=== PATIENT | female | born 1945 | race Caucasian/White ===

== ENCOUNTER → 2017-02-13 | Outpatient (CLI) | payer BC ==
[~2017-02-13] MED LIST: BIOTCAP2 PO; CALC-393 PO; CHOL100010 PO; DICL-201 PO; FLAX12003 PO; GLUC1CAP33 PO; IBUP-1050 PO; LEVO112T4 PO; LEVO125T72 PO; LISI10TA PO; MAGN400T6 PO; NAPR1TAB9 PO; POTASSIUM PO; SIMV20TA2 PO; VITAMIN D PO
--- NOTE | 2017-02-13 14:39 | DIAGNOSTIC IMAGING REPORT ---
RIGHT KNEE 3 VIEWS CLINICAL HISTORY: BILATERAL KNEE PAIN/ DJD Right COMPARISON: None. DISCUSSION: Considerable degenerative change of the medial and to lesser extent lateral joint compartments left knee. Moderate degenerative change all major joint compartments right knee. Considerable degenerative changes of patellofemoral joints bilaterally. Moderate osteophytic changes throughout. There is no evidence for soft tissue swelling. IMPRESSION: Considerable degenerative change left and to lesser extent right knee. Degenerative changes involve all major joint compartments. Electronically signed by: Mateo Madison M.D. 02/13/2017 2:36 PM Dictated Date/Time: 02/13/2017 2:36 PM
== END | disposition home or self-care (01) ==
LOC: C.RDSM 14:00
PROVIDERS: ATTEND Physician Assistant
DX: M17.0 Bilateral primary osteoarthritis of knee (principal)

== ENCOUNTER 2017-10-22 06:16 | Inpatient (IN) | payer BC, OTHER ==
[2017-09-29 11:13] VITALS: BMI 26.0
--- NOTE | 2017-09-29 11:46 | PAT Medication Instructions ---
Service Date Sep 29, 2017. Current Home Medication List Biotin (Biotin 5000), 5,000 MCG PO QAM Calcium Carbonate (Calcium), 1 TAB PO BID Flaxseed (Linseed) (Flaxseed Oil), 1 TAB PO QPM Glucosamine-Chondroitin (Glucosamine & Chondroitin 500-400 mg), 1 CAP PO QPM Ibuprofen (Advil), 400-600 MG PO Q6H Levothyroxine Sodium (Levothyroxine Sodium), 1 TAB PO QAM Lisinopril (Prinivil), 10 MG PO QAM Magnesium Oxide (Mag-Ox), 400 MG PO Q2D Naproxen (Aleve), 220 MG PO PRN [Potassium], 1 TAB PO QPM [Vitamin D], 1 TAB PO QPM Medication Instructions For Your Scheduled Surgery - Hold the following medications 2 weeks prior to surgery: Flaxseed (Linseed) (Flaxseed Oil), 1 TAB PO QPM Glucosamine-Chondroitin (Glucosamine & Chondroitin 500-400 mg), 1 CAP PO QPM - Contact your surgeon for instructions for: Naproxen (Aleve), 220 MG PO PRN Ibuprofen (Advil), 400-600 MG PO Q6H - Hold the following medications the morning of surgery: Biotin (Biotin 5000), 5,000 MCG PO QAM Calcium Carbonate (Calcium), 1 TAB PO BID Lisinopril (Prinivil), 10 MG PO QAM - Take the following medications the morning of surgery with a sip of water: Levothyroxine Sodium (Levothyroxine Sodium), 1 TAB PO QAM - Take the following medications as scheduled the night before surgery: [Potassium], 1 TAB PO QPM [Vitamin D], 1 TAB PO QPM Magnesium Oxide (Mag-Ox), 400 MG PO Q2D Calcium Carbonate (Calcium), 1 TAB PO BID If you have any questions please call us at [phone] or [phone] or [phone]
--- NOTE | 2017-09-29 12:24 | DIAGNOSTIC IMAGING REPORT ---
CHEST 2 VIEWS ROUTINE HISTORY: 72 years-old Female pat preoperative exam. No acute chest complaints. COMPARISON: None available TECHNIQUE: Frontal and lateral views of the chest FINDINGS: Cardiomediastinal and hilar silhouettes are within normal limits. There is no pneumothorax, pleural effusion, focal airspace consolidation or overt pulmonary edema. Degenerative changes are seen about the shoulders and spine. IMPRESSION: No acute cardiopulmonary process. The above report was generated using voice recognition software. It may contain grammatical, syntax or spelling errors. Electronically signed by: Ryley Hilton M.D. 09/29/2017 12:23 PM Dictated Date/Time: 09/29/2017 12:22 PM
[2017-09-29 12:38] LABS: BASO % 0.8 %; BASO ABS # 0.06 K/uL (0-0.2); COMPLETE YES; EOS % 3.8 %; HEMATOCRIT 39.7 % (37-47); IG% 0.3 %; LYMPH % 33.9 %; LYMPH ABS # 2.71 K/uL (1.2-3.4); MEAN CELL VOLUME 89.8 fL (80-100); MEAN CORPUSCULAR HEMOGLOBIN 29.4 pg (25-34); MEAN CORPUSCULAR HGB CONC 32.7 g/dl (32-36); MEAN PLATELET VOLUME 9.9 fL (7.4-10.4); MONO % 7.1 %; NEUT % 54.1 %; PLATELET COUNT 281 K/uL (130-400); RED BLOOD COUNT 4.42 M/uL (4.2-5.4)
[2017-09-29 12:42] LABS: URINE APPEARANCE CLEAR (CLEAR); URINE BILIRUBIN NEG (NEG); URINE COLOR YELLOW; URINE NITRITE NEG (NEG); URINE SPECIFIC GRAVITY 1.014 (1.000-1.030); UROBILINOGEN NEG (NEG); ZZUR CULT IF INDIC CLEAN CATCH NO
[2017-09-29 12:47] LABS: MANUAL MICROSCOPIC REQUIRED? NO; REVIEW REQ? NO
[2017-09-29 12:58] LABS: PROTHROMBIN TIME (PATIENT) 10.3 SECONDS (9.0-12.0)
[2017-09-29 14:05] LABS: CALCIUM 7.1 mg/dl (8.5-10.1); CREATININE 0.87 mg/dl (0.60-1.20); POTASSIUM 3.6 mmol/L (3.5-5.1)
--- NOTE | 2017-10-06 15:26 | HISTORY & PHYSICAL EXAMINATION ---
DATE OF ADMISSION: 10/22/2017 CHIEF COMPLAINT: Bilateral knee pain, left greater than right. HISTORY OF PRESENT ILLNESS: This 72-year-old white female presents to the office with complaints of bilateral knee pain, left greater than right, for the last several years. She previously was scheduled for a right knee TKA, but now desires to changes it to her left knee. She states that it is the most problematic. It is bothering her more with activity. She is having difficulty with activities of daily living. Pain is worse with weightbearing. She denies any current swelling. She has tried activity modification, oral anti-inflammatories, cortisone injections, and viscosupplementation injections without lasting relief. Preoperative imaging has been obtained. No numbness or tingling. She elects to proceed with total knee arthroplasty on 10/22/2017. PAST MEDICAL HISTORY: Significant for elevated cholesterol, hypothyroidism, osteoarthritis, history of thyroid cancer, GERD, and a history of cataracts. PREVIOUS SURGERIES: Thyroidectomy 1996, hysterectomy in 1987, foot surgery, hand surgery, and previous knee arthroscopy. ALLERGIES: KNOWN ALLERGY TO CIPRO. CURRENT MEDICATIONS: Biotin daily, calcium daily, flaxseed oil daily, levothyroxine 150 mcg p.o. daily, lisinopril 10 mg p.o. daily, and magnesium 200 mg p.o. daily. SOCIAL HISTORY: The patient is single. Lives by herself. No tobacco use and no ETOH use. FAMILY HISTORY: Significant for cancer, heart disease, and stroke. REVIEW OF SYSTEMS: Significant for above stated conditions. Otherwise, unremarkable. PHYSICAL EXAMINATION: GENERAL: Well-developed and well-nourished elderly white female, in no acute distress. Sitting on a bed. Alert and oriented. Looks younger than her stated age. SKIN: Warm and dry with good turgor. No rashes or lesions. No ecchymosis or erythema. HEENT: Normocephalic and atraumatic. Eyes PERRLA and EOMI. Nares patent bilaterally without turbinate enlargement. Oropharynx is without erythema or exudate. No lesions noted. Uvula midline. Oral mucosa moist. Fair dentition. Dental caps are noted. HEART: RRR. No MGR. LUNGS: Clear to auscultation bilaterally. No crackles, rhonchi or wheezing. Good air movement. ABDOMEN: Bowel sounds present x4, soft and nontender. No organomegaly. No masses. MUSCULOSKELETAL: Left knee has no intraarticular effusion. No redness or warmth. She has focal discomfort with palpation over the medial and lateral joint lines. She has peripatellar discomfort as well. Lacks just a few degrees of terminal extension. Flexion to greater than 100 degrees. Strength is 5/5 with good quad tone. No defect in the patellar tendon or quadriceps tendon. Stable collateral ligaments. Ambulatory with a slightly antalgic gait. Slight varus stance. She has crepitation palpable with range of motion. NEUROLOGIC: Cranial nerves II through XII are intact. Gross sensation is intact across both lower extremities by soft touch. DATA: Radiographic imaging previously obtained shows end-stage DJD of the left knee in all 3 compartments. Periarticular osteophytes, subchondral sclerosis, and joint space narrowing are present. IMPRESSION: Left knee end-stage degenerative joint disease. PLAN: Postoperative prescriptions for Percocet and Coumadin will be provided at discharge from the hospital. Anticipate discharge to a rehab facility or [facility] facility as she does not have anyone at home to help her. She already has access to a walker. Preoperative lab work, EKG, and chest x-ray have been ordered. Medical clearance has been requested from her PCP, Dr. Hurst.
[~2017-10-22] VITALS: Ht 170.2 cm; Wt 76.7 kg
[2017-10-22] VITALS (7 sets, daily range): BP systolic 126–164; BP diastolic 77–97; PULSE 71–88; TEMP 36.5–36.8; O2SAT 94–98; Ht 170.2 cm; Wt 76.7 kg
[~2017-10-22 06:16] MED LIST changes: +CEFAZOLIN 2000MG IV PUSH 10 ML IV SCH; -CHOL100010 PO; -DICL-201 PO; +LACTATED RINGER'S 1000ML 1,000 ML IV SCH; +LACTATED RINGER'S 1000ML 500 ML IV ONE; +LACTATED RINGER'S 1000ML IV SCH; -LEVO125T72 PO; +ROPIVACAINE 5MG/ML 30 ML 150 MG, BUPIVACAINE/EPINEPHR 0.5% MPF 30 ML, KETOROLAC TROMETH... INFIL SCH; -SIMV20TA2 PO; +TRANEXAMIC ACID INJ 1,000 MG in SYRINGE 0 ML IV SCH
--- NOTE | 2017-10-22 06:26 | History & Physical Bridge Note ---
H&P Re-Evaluation Bridge Note: I have examined the patient, reviewed the History & Physical and in the interval since the performance of the History & Physical I have noted the following changes of clinical significance: consent reviewed.No changes noted
[2017-10-22] MEDS ORDERED: BUPIVACAINE 0.5 % 5 MG/1 ML PF 10ML VIAL ONE (06:33)
[2017-10-22] MEDS ORDERED: BUPIVACAINE 0.25% 30 ML VIAL ONE (06:34)
[2017-10-22] MEDS ORDERED: FENTANYL CITRATE INJ 50 MCG/1 ML 2 ML VIAL ONE (07:37)
[2017-10-22] MEDS ORDERED: MIDAZOLAM HCL 1 MG/ML 2ML VIAL ONE (07:38)
[2017-10-22] MEDS ORDERED: ORTHO JOINT ANESTHETIC ONE (08:43)
[2017-10-22] MEDS ORDERED: POVIDONE-IODINE OP SOLN 30 ML BTL ONE (08:43)
[2017-10-22] MEDS ORDERED: PROPOFOL IV EMULSION 10 MG/ML 20 ML VIAL IV ONE (09:30)
[2017-10-22] MEDS ORDERED: DEXAMETHASONE SOD INJ 4 MG/ML VIAL ONE (09:30)
[2017-10-22] MEDS ORDERED: ONDANSETRON INJ 2 MG/ML 2 ML VIAL ONE (09:30)
--- NOTE | 2017-10-22 10:37 | [facility] Post Operative Brief Note ---
Immediate Operative Summary Operative Date Oct 22, 2017. Pre-Operative Diagnosis Left Knee Degenerative Joint Disease Post-Operative Diagnosis Same as preop Procedure(s) Performed Left Total Knee Arthroplasty Surgeon Dr. Magallon Sheet Pile Hammer Operator Surgeon(s) Garry Mast PA-C Estimated Blood Loss 100 ml Findings severe djd Fluids (cc crystalloids) 1700cc Specimens A. Left Knee Bone and Tissue Drains none Anesthesia spinal Complication(s) None Disposition Recovery Room / PACU
[2017-10-22] MEDS ORDERED: METOCLOPRAMIDE HCL INJ 5 MG/ML 2 ML VIAL IV PRN (11:00)
[2017-10-22] MEDS ORDERED: MoRPHine SULFATE 2 MG/ML CARP IV PRN (11:00)
[2017-10-22] MEDS ORDERED: DiphenhydrAMINE HCL 50 MG/ML VIAL IV PRN (11:00)
[2017-10-22] MEDS ORDERED: BISACODYL 10 MG SUPP PR PRN (11:00)
[2017-10-22] MEDS ORDERED: ONDANSETRON INJ 2 MG/ML 2 ML VIAL IV PRN ×2 (11:00→11:15)
[2017-10-22] MEDS ORDERED: CEFAZOLIN IV 2,000 MG in DEXTROSE 5% 50ML 50 ML IV SCH (11:00)
[2017-10-22] MEDS ORDERED: MAGNESIUM HYDROXIDE SUSP 30 ML UDC PO PRN (11:00)
[2017-10-22] MEDS ORDERED: ACETAMINOPHEN IV 100 ML IV PRN (11:00)
[2017-10-22] MEDS ORDERED: MAGNESIUM OXIDE 400 MG TAB PO SCH (11:00)
[2017-10-22] MEDS ORDERED: ALUMINUM/MAGNESIUM/SIMETH (MAALOX MAX) 30 ML UDC PO PRN (11:00)
[2017-10-22] MEDS ORDERED: ACETAMINOPHEN 325 MG TAB PO PRN (11:00)
[2017-10-22] MEDS ORDERED: EpHEDrine SULFATE INJ 50 MG/ML AMP IV PRN (11:15)
[2017-10-22] MEDS ORDERED: PHENYLEPHRINE 100MCG/ML 5ML SYR IV PRN (11:15)
[2017-10-22] MEDS ORDERED: ATROPINE SULFATE 0.1 MG/ML 5ML SYR IV PRN (11:15)
[2017-10-22] MEDS ORDERED: HYDROmorphone INJ 0.5 MG/0.5 ML SYR IV PRN (11:15)
[2017-10-22] MEDS ORDERED: KETOROLAC TROMETHAMINE 15 MG/ML VIAL IV. PRN (11:15)
--- NOTE | 2017-10-22 11:21 | OPERATIVE REPORT ---
DATE OF OPERATION: 10/22/2017 PREOPERATIVE DIAGNOSIS: Osteoarthritis left knee with flexion and varus deformity. POSTOPERATIVE DIAGNOSIS: Same. OPERATION PERFORMED: Cemented left total knee replacement. SURGEON: Dr. Magallon. TILE PRESSER: Garry Mast PA-C. No resident or fellow available. PERIOPERATIVE SITUATION: Medically cleared female with intractable knee pain has been followed for years. At this point in time has reached failure to respond to any nonsurgical management and is requesting total knee replacement. CONSENT: Obtained, risks and benefits of noted. OPERATION AND FINDINGS: OPERATION: The patient appropriately identified, site verified, consent verified, 2 grams of Ancef confirmed as being given. The left lower extremity was prepped and draped in usual routine fashion. Tourniquet inflated to 300 mmHg after exsanguination of limb with a rubber Esmarch bandage for a total of approximately 60 minutes. Midline exposure was utilized. Parapatellar arthrotomy performed. Synovectomy completed. Soft tissue release was performed. Distal femur resected 14 mm. Proximal tibia resected 4 mm. It was still tight in extension and flexion so an additional 2 mm was resected. This allowed an excellent extension gap. The femur was then sized between a 3 and a 2.5. It was measured 3 cut 2.5. There was no notching. The flexion gap was then checked. It was still tight little bit laterally, so appropriate releases performed and then it was excellent. The femur was then placed. The 2.5 cutting block and appropriate anterior, posterior condylar and chamfer cuts made. The box cut was then made and the size 2.5 fit well. The tibia was then broached and reamed for 2.5 and trial reduction with 10 revealed excellent stability in full extension, mid range flexion and full flexion. Range of motion from 0-125 degrees. The patella tracked well. The patella osteophytes were then resected. The patella was then resected leaving about 15 mm and required a revision cut due to some hard bone and once this was done, the button sat well. It was 38 button. All trial implants were then removed. The wound was irrigated with Betadine, Pulsavac and then injected with the Orthomix and the permanent cemented into position. After 12 minutes, the tourniquet deflated. After 14 minutes the knee flexed. Minor cement removal was not required. The wound was irrigated with Betadine Pulsavac. The trial liner removed, the permanent liner seated, knee reduced. No drain placed and then closed with #1 Ethibond, #1 Vicryl, 2-0 Vicryl and stainless steel clips. Appropriate dressing applied. ESTIMATED BLOOD LOSS: 100 mL. CRYSTALLOID: 1700 mL. SUMMARY OF IMPLANTS: Size 2.5 left posterior cruciate substituting femur, size 2.5 tibial rotating tray, oval domed 3 pegged patella size 28, tibial insert 2.5 x 10 mm posterior cruciate substituting and 2 bags of Palacos G cement. DVT prophylaxis will be with Coumadin. The bone pathology pending. I attest to the content of the Intraoperative Record and any orders documented therein. Any exception s are noted below.
--- NOTE | 2017-10-22 11:22 | DIAGNOSTIC IMAGING REPORT ---
LEFT KNEE 2 VIEWS History: Left total knee arthroplasty. Degenerative arthritis. Postop. FINDINGS: The patient is status post a left total knee arthroplasty. The hardware is intact. No fracture or dislocation. Skin gail are in place. IMPRESSION: Left total knee arthroplasty. No evidence for hardware complication. Electronically signed by: Bassam Mckeon M.D. 10/22/2017 11:20 AM Dictated Date/Time: 10/22/2017 11:20 AM
--- NOTE | 2017-10-22 12:25 | Anesthesiology Progress Note ---
Anesthesia Post Op Note Date & Time Oct 22, 2017 at 12:24 Vital Signs Pain Intensity: 0 Vital Signs Past 12 Hours Date Time Temp Pulse Resp B/P (MAP) Pulse Ox O2 Delivery O2 Flow Rate FiO2 10/22/17 11:55 70 15 120/74 95 Nasal Cannula 2 10/22/17 11:45 36.5 68 14 127/75 96 Nasal Cannula 2 10/22/17 11:35 67 18 126/79 97 Nasal Cannula 2 10/22/17 11:25 67 18 126/80 98 Nasal Cannula 2 10/22/17 11:15 70 16 128/81 96 Nasal Cannula 2 10/22/17 11:05 73 14 122/74 97 Nasal Cannula 2 10/22/17 10:55 71 13 125/77 97 Nasal Cannula 2 10/22/17 10:45 36.0 80 24 106/84 94 Nasal Cannula 2 10/22/17 06:58 36.5 74 20 151/97 97 Room Air Notes Mental Status: alert / awake / arousable, participated in evaluation Pt Amnestic to Procedure: Yes Nausea / Vomiting: adequately controlled Pain: adequately controlled Airway Patency, RR, SpO2: stable & adequate BP & HR: stable & adequate Hydration State: stable & adequate Anesthetic Complications: no major complications apparent
[2017-10-22] MEDS ORDERED: D5W AND 1/2NSS + 20MEQ KCL 1,000 ML IV SCH (13:00)
--- NOTE | 2017-10-22 13:00 | [facility] Operative Report ---
Operative Report Operative Date Oct 22, 2017. Pre-Operative Diagnosis Left Knee Degenerative Joint Disease Post-Operative Diagnosis Left knee same as preop Procedure(s) Performed Left Total Knee Arthroplasty Surgeon Dr. Magallon Transmission Engineer Surgeon(s) Garry Mast PA-C Estimated Blood Loss 100 ml Findings left knee DJD Fluids 1700cc Specimens A. Left Knee Bone and Tissue Drains none Anesthesia spinal Complication(s) None Disposition Recovery Room / PACU Indications This 72-year-old white female presented to the office with complaints of intractable bilateral knee pain, left greater than right. She had tried conservative care measures including activity modification, cortisone injections , viscous supplementation injections, physical therapy, and oral pain medication without relief. She elected to proceed with surgical intervention in hopes of alleviating her left knee pain. Pre-operative imaging was obtained. Description of Procedure Patient was administered a spinal anesthetic and then taken to the operating room where she was given sedation. She was prepped and draped in usual sterile fashion. Please see Dr. Magallon's operative report for specifics of the procedure. I was present for the entire case from initial patient positioning through final wound closure. Assistance was provided in patient positioning, tissue traction, hemostasis, trial implant placement, final implant placement, and final wound closure. Patient was taken to the recovery room in satisfactory condition. I attest to the content of the Intraoperative Record and any orders documented therein. Any exceptions are noted below.
--- NOTE | 2017-10-22 13:30 | OPERATIVE REPORT ---
DATE OF OPERATION: 10/22/2017 PREOPERATIVE DIAGNOSIS: Postop check status post left total knee replacement. The patient is sitting up in bed . She denies chest pain, shortness breath, fever, chills, nausea, vomiting or headache. Her pain is well managed. Her vital signs are stable and she is afebrile . Wound dressing is clean dry and intact. Postop x-rays look excellent. ASSESSMENT: Doing well status post left total knee replacement. PLAN: To continue with postop care pathway. Mobilize. She is eating well. Will Hep-Lock IV at 1500 hours. Will follow up with home health services for home needs. I attest to the content of the Intraoperative Record and any orders documented therein. Any exceptions are noted below. ALMAS
[2017-10-22] MEDS: OXYCODONE HCL IR 5 MG TAB (IMMEDIATE RELEASE) PO PRN ×4 (13:56→23:50)
[2017-10-22] MEDS: FERROUS GLUCONATE 324 MG TAB PO SCH ×2 (13:56→18:32)
[2017-10-22] MEDS ORDERED: WARF2TAB PO (15:53)
--- NOTE | 2017-10-22 15:55 | Discharge Instructions ---
Discharge Instructions Date of Service Oct 22, 2017. Admission Reason for Admission: Left Knee Osteoarthritis Discharge Discharge Diagnosis / Problem: left knee s/p total knee replacement Discharge Goals Goal(s): Decrease discomfort, Improve function, Increase independence Activity Recommendations Activity Limitations: as noted below Lifting Limitations: gradually increase as tolerated Exercise/Sports Limitations: until after follow-up appointment Shower/Bathe: keep incision dry Driving or Machine Use: No driving until cleared by Dr. Magallon Weightbearing Status: Left weightbearing (as tolerated) . Instructions / Follow-Up Instructions / Follow-Up New Medicine: * You will likely be taking one or more of these medications: 1. Percocet - Take, as directed, when you need it, every four to six hours to control your pain. 2. Coumadin - Thins your blood to lessen the chance of forming a blood clot. The dose of this is different for each person and is based on your blood tests that are done twice a week. * The most common side effects of pain medicine and iron are nausea and constipation. If nausea or constipation is too much of a problem or if you have any questions about your new medicines or doses, call [facility] at . We will try to help you manage these issues. VERY IMPORTANT TO READ AND REVIEW" Blood Clots and Blood Thinning Medicine: * You are given Coumadin during the immediate post-operative period to lessen the risk of blood clots forming in your legs and/or lungs. Coumadin is usually given for six weeks after surgery. * The prescription is for 2 mg tablets. At discharge, you should understand your dose and take it all at the same time every day, preferably after dinner. * You need to get your blood checked 1 - 2 times per week for six weeks or as directed. * If your dose needs to change, we will call you. Do not take your medication on the day of the blood test until we call you. Pain: * The immediate post-operative period after knee replacement surgery is often quite painful. * You are given a prescription for pain medicine. You should take it, as directed, when you need it, especially before physical therapy and before going to bed. Pain that interferes with sleep is very common and can last several months. * You will likely need pain medicine for the first four to six weeks. It will not stop all of the pain. The pain will lessen and as you feel better, you may change to milder pain medicine such as Tylenol. * The most common side effects of pain medicine are nausea and constipation, so don't take more than you need. Physical Therapy: * You will have physical therapy two or three times each week for four to six weeks after your surgery in order to regain your knee range of motion and to retrain your knee to work properly. * It is just as important to make sure you are getting your knee perfectly straight as it is to regain your knee bend. * Taking a pain pill an hour before therapy can help you have a more productive and comfortable therapy session if needed. Home Exercise: * You were shown a series of exercises (heel props, heel slides, etc.) in the hospital. Do these exercises three to four times each day including the exercises you were shown in physical therapy. Walking: * Get up and walk several times each day. For the first four weeks, try not to stand or walk for more than one hour at a time. If you do stand or walk for more than one hour, you will not hurt anything, but your knee and leg will likely swell. * As you feel comfortable, you may change from the walker or crutches to a cane and then to independent walking. SELF CARE INSTRUCTIONS AFTER TOTAL KNEE REPLACEMENT A. You may need to continue a physical therapy program after discharge from the hospital. There are several options available to you. Your doctor will assist you in selecting the best one for you. 1. An out-patient facility 2 to 3 times a week for therapy or home therapy. 2. Continue working on all exercises taught to you in the hospital. Your goals should be to increase bending of your knee to 90 degrees and beyond and to fully straighten your knee. B. You may progress at your own pace from walking with a walker or crutches to a cane; then to no assistive devices. C. Make walking a part of your daily routine. Be up as much as comfortable with rest periods throughout the day. Rest with leg elevation is very important. Use the ice wrap frequently for the first 3-4 weeks. D. There are no restrictions on activities. You may ride in a car, shop, participate in operations dispatcher and all social activities. E. Wear the long elastic stockings (ALBERTO hose) 20 hours a day for six weeks after surgery. They can be removed several times a day for laundering and for a shower. F. Do not place a pillow behind your knee when resting. A pillow at your ankle is okay. VERY IMPORTANT TO READ AND REVIEW A. Take Coumadin, Aspirin or Lovenox (blood thinning medications) as directed by your doctor. If on Coumadin, have a pro-time (blood test) drawn according to your doctor's instructions. This will tell the doctor how well the Coumadin is thinning your blood. 1. YOU WILL BE GIVEN AN ORDER AT DISCHARGE FOR PT/INR (BLOOD WORK). PLEASE HAVE THIS DONE INSTRUCTED. PLEASE CALL OUR OFFICE AFTER YOUR BLOODWORK IS COMPLETE SO WE CAN TRACK YOUR RESULTS. IF YOU ARE GOING TO OUTPATIENT PHYSICAL THERAPY, YOU WILL NEED TO GO TO OUTPATIENT TESTING TO HAVE IT DRAWN. B. There are a few signs you need to watch for after you are home. Call [facility] if you notice any of the followin. Increased severe knee pain. Some pain is expected especially when you exercise. 2. Increased swelling in your leg or knee; pain or swelling of the calf muscle in either lower leg. 3. Any fluid drainage from the incision. 4. Shortness of breath or chest pain. C. Please call [facility] at if you have any concerns or questions about your operation or recovery. The doctor or his nurse will return your call promptly. D. You must take antibiotics before dental work, bladder, bowel or other surgery. Call the office to obtain a prescription at least 2 days prior to your appointment. * CALL IF INCREASED PAIN, REDNESS, DRAINAGE OR FEVER GREATER THAT 101. * Sutures should be removed 12-14 days after surgery unless you are on chronic steriods, then it will be 14-18 days after surgery. Call your doctor if: * Temperature above 101 degrees F. * Pain not relieved by pain medicine ordered. * Increased drainage or redness from incision. * Notify your doctor with any questions or concerns. Current Hospital Diet Patient's current hospital diet: Regular Diet Discharge Diet Recommended Diet: Regular Diet Procedures Procedures Performed: Left Total Knee Arthroplasty Pending Studies Studies pending at discharge: no Medical Emergencies . Who to Call and When: Medical Emergencies: If at any time you feel your situation is an emergency, please call 911 immediately. . Non-Emergent Contact Non-Emergency issues call your: Primary Care Provider, Surgeon Call Non-Emergent contact if: temperature is above 101, wound has increased drainage, wound has increased redness, wound has increased pain, you have any medication questions . "Provider Documentation" section prepared by Garry Mast PA-C. . VTE Core Measure Inpt VTE Proph given/why not?: Warfarin (Coumadin), T.E.D. Stockings, SCD's [place] Drug Monitoring Program Search Results: no issues identified
[2017-10-22] MEDS ORDERED: WARFARIN SOD 5 MG TAB PO SCH (16:00)
[2017-10-22] MEDS: CEFAZOLIN IV 2,000 MG in SYRINGE 0 ML IV SCH (17:24)
[2017-10-22] MEDS: KETOROLAC TROMETHAMINE 15 MG/ML VIAL IV. PRN ×2 (17:36→23:50)
[2017-10-22] MEDS ORDERED: TRANEXAMIC ACID INJ 1,000 MG in SODIUM CHLORIDE 0.9% 100ML 100 ML IV ONE (18:00)
[2017-10-22] MEDS: DOCUSATE SODIUM 100 MG CAP PO SCH (21:04)
[2017-10-23] MEDS: CEFAZOLIN IV 2,000 MG in SYRINGE 0 ML IV SCH (00:57)
[2017-10-23 03:43] VITALS: BP 102/66; PULSE 73; TEMP 36.5; O2SAT 95
[2017-10-23] MEDS: OXYCODONE HCL IR 5 MG TAB (IMMEDIATE RELEASE) PO PRN ×4 (05:35→15:15)
[2017-10-23] MEDS ORDERED: LEVOTHYROXINE 112 MCG TAB PO SCH (06:00)
[2017-10-23] MEDS: KETOROLAC TROMETHAMINE 15 MG/ML VIAL IV. PRN (06:09)
[2017-10-23 06:49] LABS: HEMATOCRIT 34.4 % (37-47); MEAN CELL VOLUME 89.4 fL (80-100); MEAN CORPUSCULAR HEMOGLOBIN 29.6 pg (25-34); MEAN CORPUSCULAR HGB CONC 33.1 g/dl (32-36); MEAN PLATELET VOLUME 9.9 fL (7.4-10.4); PLATELET COUNT 287 K/uL (130-400); RED BLOOD COUNT 3.85 M/uL (4.2-5.4); WHITE BLOOD COUNT 13.79 K/uL (4.8-10.8)
[2017-10-23 07:00] VITALS: BP 124/79; PULSE 82; TEMP 36.9; O2SAT 97
[2017-10-23 07:13] LABS: PROTHROMBIN TIME (PATIENT) 10.7 SECONDS (9.0-12.0)
[2017-10-23] MEDS ORDERED: DEXAMETHASONE INJ 10 MG in SYRINGE 0 ML IV ONE (07:30)
--- NOTE | 2017-10-23 08:07 | PROGRESS NOTE ---
DATE: 10/23/2017 DATE: 10/23/2017 SUBJECTIVE: Postop day 1 status post left total knee replacement. At this point in time the patient is doing well. She is a little bit insecure, otherwise is fine. She denies chest pain, shortness of breath, fever, chills, nausea, vomiting or headache. Vital signs are stable. She is afebrile. Wound dressing clean, dry and intact. Femoral nerve is working well. She can do a good straight leg raise. Calves are nontender. Electrolytes are pending today. Blood count is stable at 34.4, only dropped 5 points. INR is 1.0. Again chemistry is pending. ASSESSMENT: Overall doing well. At this point in time she is confident after a.m. PT/OT she could be discharged today. Will await laboratory results. ALMAS
--- NOTE | 2017-10-23 08:14 | DISCHARGE SUMMARY ---
DATE OF POTENTIAL DISCHARGE 10/23/2017. CHIEF COMPLAINT: Knee pain, left greater than right. HISTORY OF PRESENT ILLNESS: The patient underwent elective left total knee replacement. At this point in time her hospital course has been uneventful. She is ambulatory. She is eating well. She is voiding. She denies check pain, shortness of breath, fever, chills, nausea, vomiting or muscle cramping. PAST MEDICAL HISTORY: Remarkable for elevated cholesterol, hypothyroidism, osteoarthritis, history of thyroid cancer, GERD and history of cataracts. PAST SURGICAL HISTORY: Thyroidectomy, hysterectomy, foot surgery, hand surgery and multiple knee arthroscopies. CURRENT MEDICATIONS: Include biotin, calcium, flaxseed oil, levothyroxine, lisinopril. SOCIAL HISTORY: Remarkable that she lives by herself. She is single. No tobacco or alcohol use. FAMILY HISTORY: Remarkable for cancer, heart disease, stroke. REVIEW OF SYSTEMS: Negative as noted above. ASSESSMENT: Status post left total knee replacement. At this point in time she is doing well. INR is subtherapeutic. Will discharge on 4 mg of Coumadin daily. History of hypocalcemia will need to reassess this today. Laboratories pending. If able to be discharged will be discharged today pending laboratory results and PT status and confidence level.
[2017-10-23 08:23] LABS: BUN/CREATININE RATIO 23.5 (10-20); CALCIUM 5.7 mg/dl (8.5-10.1); CREATININE 0.96 mg/dl (0.60-1.20); POTASSIUM 3.7 mmol/L (3.5-5.1)
[2017-10-23] MEDS: FERROUS GLUCONATE 324 MG TAB PO SCH ×2 (08:43→13:06)
[2017-10-23] MEDS: DOCUSATE SODIUM 100 MG CAP PO SCH (08:43)
[2017-10-23] MEDS ORDERED: OXYC-57 PO (08:44)
[2017-10-23] MEDS ORDERED: CALCIUM CARBONATE 500 MG CHEWABLE PO PRN (08:45)
--- NOTE | 2017-10-23 08:52 | Orthopedic Progress Note ---
Orthopedic Progress Note Date of Service Oct 23, 2017. Subjective Post OP Day: 1 Reports: feeling well, pain controlled w PO medications, Denies: complaints, chest pain, SOB, nausea / vomiting, light headedness, calf pain Additional Notes: states she did not sleep well. Had too many interruptions. Denies significant pain. Objective calves soft nontender, N/V intact, capillary refill less than 2 sec., dressing C /D/I, incision C/D/I, A&O x3, toes mobile, CMS intact Minimal dried blood on bandages. No active drainage. Calcium 5.7 this morning. Chronically low with 6.0 in 2014. Pt acknowledges this. Date Time Temp Pulse Resp B/P (MAP) Pulse Ox O2 Delivery O2 Flow Rate FiO2 10/23/17 07:00 36.9 82 16 124/79 (94) 97 Room Air 10/23/17 03:43 36.5 73 16 102/66 (78) 95 Room Air 10/22/17 23:50 Room Air 10/22/17 22:59 36.8 75 16 126/77 (93) 94 Room Air 10/22/17 19:32 36.6 78 18 149/90 (109) 96 Room Air 10/22/17 16:00 Room Air 10/22/17 14:46 36.8 88 18 164/94 (117) 10/22/17 13:11 84 18 146/86 (106) 10/22/17 12:31 71 16 140/88 (105) 10/22/17 12:00 98 Nasal Cannula 2.0 10/22/17 12:00 36.5 72 14 145/81 (102) 98 Nasal Cannula 2.0 10/22/17 11:55 70 15 120/74 95 Nasal Cannula 2 10/22/17 11:45 36.5 68 14 127/75 96 Nasal Cannula 2 10/22/17 11:35 67 18 126/79 97 Nasal Cannula 2 10/22/17 11:25 67 18 126/80 98 Nasal Cannula 2 10/22/17 11:15 70 16 128/81 96 Nasal Cannula 2 10/22/17 11:05 73 14 122/74 97 Nasal Cannula 2 10/22/17 10:55 71 13 125/77 97 Nasal Cannula 2 10/22/17 10:45 36.0 80 24 106/84 94 Nasal Cannula 2 Laboratory Results 24 Hours: Test 10/23/17 05:57 Hematocrit 34.4 % Hemoglobin 11.4 g/dL Prothromb Time International Ratio 1.0 Prothrombin Time 10.7 SECONDS Assessment & Plan Assessment: Left knee post op day 1 total knee arthroplasty. Chronic hypocalcemia. Plan: PT/OT today coumadin per nomogram dressing changed this morning-wound looks very good. plan is D/C to home later today with home health. I will speak with her PCP about chronic hypocalcemia. Spoke with PCPs office, who comfirmed chronic hypocalcemia. 04.08, 04.06. Discharge Planning Discharge Planning: home with home health Pain Management: Percocet DVT Prophylaxis: TEDs, SCDs, Coumadin Therapy: Physical Therapy, Occupational Therapy
[2017-10-23] MEDS ORDERED: LISINOPRIL 10 MG TAB PO SCH (09:00)
[2017-10-23] MEDS ORDERED: PANTOprazole SOD 40 MG TAB PO SCH (09:00)
[2017-10-23] MEDS ORDERED: MULTIVITAMIN TAB PO SCH (09:00)
[2017-10-23] MEDS ORDERED: WARFARIN SOD 5 MG TAB PO STA (11:11)
[2017-10-23 11:15] VITALS: BP 126/81; PULSE 68; TEMP 36.8; O2SAT 93
== END 2017-10-23 15:44 | disposition home health service (06) | DRG 470 ==
LOC: C.ACU 06:16 → C.3E 06:30 → ENRESERV 11:17
PROVIDERS: ADMIT Physical Medicine & Rehabilitation Sports Medicine; ATTEND Physical Medicine & Rehabilitation Sports Medicine
PROC: 0SRD0J9 Replacement of Left Knee Joint with Synthetic Substitute, Cemented, Open Approach (ICD-10-PCS; principal; 2017-10-22 09:00)
DX: M17.12 Unilateral primary osteoarthritis, left knee (principal); M21.162 Varus deformity, not elsewhere classified, left knee; E03.9 Hypothyroidism, unspecified; K21.9 Gastro-esophageal reflux disease without esophagitis; Z85.850 Personal history of malignant neoplasm of thyroid; Z90.710 Acquired absence of both cervix and uterus

== ENCOUNTER → 2017-12-01 | Outpatient (CLI) | payer BC, OTHER ==
[~2017-12-01] MED LIST changes: -CEFAZOLIN 2000MG IV PUSH 10 ML IV SCH; -FLAX12003 PO; -IBUP-1050 PO; -LACTATED RINGER'S 1000ML 1,000 ML IV SCH; -LACTATED RINGER'S 1000ML 500 ML IV ONE; -LACTATED RINGER'S 1000ML IV SCH; -NAPR1TAB9 PO; +OXYC-57 PO; -ROPIVACAINE 5MG/ML 30 ML 150 MG, BUPIVACAINE/EPINEPHR 0.5% MPF 30 ML, KETOROLAC TROMETH... INFIL SCH; -TRANEXAMIC ACID INJ 1,000 MG in SYRINGE 0 ML IV SCH; +WARF2TAB PO
== END | disposition home or self-care (01) ==
LOC: C.RDSM 14:00
PROVIDERS: ATTEND Physical Medicine & Rehabilitation Sports Medicine
DX: Z96.652 Presence of left artificial knee joint (principal)